=== PATIENT | female | born 1940 | race Caucasian/White ===

== ENCOUNTER 2016-11-30 06:00 | Inpatient (IN) | payer OTHER ==
[~2016-11-30] VITALS: Ht 170.2 cm; Wt 82.0 kg
[2016-11-30] MEDS ORDERED: ONDANSETRON 2MG/ML, 2ML ONE (06:20)
[2016-11-30] MEDS ORDERED: MORPHINE SULFATE 4 MG/ML, 1ML ONE ×2 (06:20→09:34)
[2016-11-30 06:29] LABS: HEMATOCRIT 39.2 % (34.6-47.8); HEMOGLOBIN 12.8 g/dL (11.7-16.4); WHITE BLOOD COUNT 13.6 x10^3/uL (3.4-10)
[2016-11-30] MEDS ORDERED: ONDANSETRON 2MG/ML, 2ML IVPush ONE (06:30)
[2016-11-30] MEDS ORDERED: MORPHINE SULFATE 4 MG/ML, 1ML IVPush ONE ×3 (06:30→09:30)
[2016-11-30] MEDS ORDERED: SODIUM CHLORIDE FLUSH 10ML SYR IVF ONE (06:30)
[2016-11-30] MEDS ORDERED: PLEASE ENTER ALLERGIES MC SCH ×2 (06:30)
[2016-11-30 06:36] LABS: BLOOD UREA NITROGEN 10 mg/dL (7-18)
[2016-11-30] MEDS ORDERED: WARF4TAB7 PO (07:01)
[2016-11-30] MEDS ORDERED: ATOR40TA78 PO (07:01)
[2016-11-30] MEDS ORDERED: LEVO100T5 PO (07:01)
[2016-11-30] MEDS ORDERED: METO50TA82 PO (07:01)
[2016-11-30] MEDS ORDERED: OMEP-110 PO (07:01)
[2016-11-30] MEDS ORDERED: LOSA100T6 PO (07:01)
[2016-11-30] MEDS ORDERED: GABA300C10 PO (07:01)
[2016-11-30] MEDS ORDERED: MAGN400T26 PO (07:01)
[2016-11-30] MEDS ORDERED: OXYB10TA6 PO (07:01)
[2016-11-30] MEDS ORDERED: CALC1CAP8 PO (07:04)
[2016-11-30 09:10] LABS: PATH.CAST-FLAG NOT PRESENT; SPERM-FLAG NOT PRESENT; SRC-FLAG NOT PRESENT; XTAL-FLAG NOT PRESENT; YLC-FLAG NOT PRESENT
[2016-11-30] MEDS ORDERED: LABETALOL 5MG/ML, 20ML IVPush PRN (11:00)
[2016-11-30] MEDS ORDERED: ENALAPRILAT 1.25 MG/ML, 2ML IVPush PRN (11:00)
[2016-11-30] MEDS ORDERED: ONDANSETRON 2MG/ML, 2ML IVPush PRN (11:00)
[2016-11-30] MEDS ORDERED: TEMAZEPAM 15 MG CAPSULE PO PRN (11:00)
[2016-11-30 11:46] LABS: IS PT STATUS REG ER OR PRE ER? YES
[2016-11-30] MEDS ORDERED: CEFTRIAXONE PMX 1GM/50ML 50 ML ONE (11:58)
[2016-11-30] MEDS: CEFTRIAXONE PMX 1GM/50ML 50 ML IV SCH (12:07)
[2016-11-30] MEDS: OXYcodone IR 5MG TABLET PO PRN ×3 (13:20→20:46)
[2016-11-30] MEDS: ENOXAPARIN 80 MG/0.8 ML SQ SCH ×2 (13:20→23:01)
[2016-11-30 15:49] VITALS: BP 115/67
[2016-11-30] MEDS: GABAPENTIN 300 MG CAPSULE PO SCH ×2 (16:58→20:46)
[2016-11-30] MEDS: morphine SULFATE 10 MG/ML, 1ML IVPush PRN (16:58)
[2016-11-30] MEDS ORDERED: WARFARIN 5 MG TABLET PO-COUM ONE (18:00)
[2016-11-30 19:22] VITALS: BP 94/61
[2016-11-30 20:44] VITALS: BP 93/61
[2016-11-30] MEDS: LOSARTAN 50MG TABLET PO SCH (20:45)
[2016-11-30] MEDS: METOPROLOL TARTRATE 50 MG TABLET PO SCH (20:45)
[2016-11-30] MEDS: ATORVASTATIN 40 MG TABLET PO SCH (20:46)
[2016-11-30] MEDS ORDERED: TEMPLATE NON-FORMULARY MED. (Warfarin Sodium** 4 MG) PO SCH (21:00)
[2016-12-01 04:31] LABS: HEMATOCRIT 38.6 % (34.6-47.8); HEMOGLOBIN 12.5 g/dL (11.7-16.4); WHITE BLOOD COUNT 12.9 x10^3/uL (3.4-10)
[2016-12-01 04:41] LABS: ASPARTATE AMINO TRANSFERASE 8 U/L (15-37); BLOOD UREA NITROGEN 11 mg/dL (7-18)
[2016-12-01 04:43] VITALS: BP 106/67
[2016-12-01 04:53] LABS: DIFF TOTAL CELLS COUNTED 100 CELL DIFF
[2016-12-01 04:56] LABS: VERIFY COUNTS? YES
[2016-12-01] MEDS: OXYcodone IR 5MG TABLET PO PRN (05:32)
[2016-12-01] MEDS: LEVOTHYROXINE 100 MCG TABLET PO SCH (05:32)
[2016-12-01] MEDS ORDERED: OMEPRAZOLE 20 MG CAPSULE.DR PO SCH (07:30)
[2016-12-01 08:36] VITALS: BP 119/75
[2016-12-01] MEDS: MAGNESIUM OXIDE 400 MG TABLET PO SCH (08:46)
[2016-12-01] MEDS: METOPROLOL TARTRATE 50 MG TABLET PO SCH ×2 (08:46→20:25)
[2016-12-01] MEDS: GABAPENTIN 300 MG CAPSULE PO SCH ×3 (08:46→20:26)
[2016-12-01] MEDS: METHOCARBAMOL 500 MG TABLET PO SCH ×3 (10:31→20:26)
[2016-12-01] MEDS: CEFTRIAXONE PMX 1GM/50ML 50 ML IV SCH (10:32)
[2016-12-01] MEDS: ENOXAPARIN 80 MG/0.8 ML SQ SCH (13:29)
[2016-12-01] MEDS ORDERED: SODIUM CHLORIDE 0.9% 1,000 ML IV ONE (14:00)
[2016-12-01 14:35] VITALS: BP 106/78
[2016-12-01] MEDS ORDERED: WARFARIN 7.5 MG TABLET PO-COUM ONE (18:00)
[2016-12-01] MEDS: ATORVASTATIN 40 MG TABLET PO SCH (20:25)
[2016-12-01] MEDS: LOSARTAN 50MG TABLET PO SCH (20:26)
[2016-12-01 20:31] VITALS: BP 96/58
[2016-12-01] MEDS: morphine SULFATE 10 MG/ML, 1ML IVPush PRN (22:49)
[2016-12-02] VITALS (9 sets, daily range): BP systolic 68–118; BP diastolic 38–67
[2016-12-02] MEDS: ENOXAPARIN 80 MG/0.8 ML SQ SCH (00:31)
[2016-12-02] MEDS ORDERED: SODIUM CHLORIDE 0.9% 1,000ML IVBOLUS ONE ×3 (01:00→02:30)
[2016-12-02] MEDS ORDERED: GLUCAGON 1 MG IM ONE (02:00)
[2016-12-02] MEDS ORDERED: METHOCARBAMOL 500 MG TABLET PO PRN (02:30)
[2016-12-02] MEDS ORDERED: OXYcodone IR 5MG TABLET PO PRN (03:00)
[2016-12-02] MEDS ORDERED: morphine SULFATE 10 MG/ML, 1ML IVPush PRN (05:00)
[2016-12-02] MEDS: LEVOTHYROXINE 100 MCG TABLET PO SCH (06:41)
[2016-12-02 06:44] LABS: HEMOGLOBIN 10.8 g/dL (11.7-16.4); WHITE BLOOD COUNT 8.8 x10^3/uL (3.4-10)
[2016-12-02 06:56] LABS: BLOOD UREA NITROGEN 14 mg/dL (7-18)
[2016-12-02] MEDS: GABAPENTIN 300 MG CAPSULE PO SCH ×3 (10:08→19:50)
[2016-12-02] MEDS: MAGNESIUM OXIDE 400 MG TABLET PO SCH (10:08)
[2016-12-02] MEDS: CEFTRIAXONE PMX 1GM/50ML 50 ML IV SCH (11:15)
[2016-12-02] MEDS ORDERED: WARFARIN 2 MG TABLET PO-COUM SCH (18:00)
[2016-12-02] MEDS: ATORVASTATIN 40 MG TABLET PO SCH (19:50)
[2016-12-03 01:20] VITALS: BP 116/66
[2016-12-03 05:34] LABS: HEMATOCRIT 33.5 % (34.6-47.8); HEMOGLOBIN 10.9 g/dL (11.7-16.4); WHITE BLOOD COUNT 6.3 x10^3/uL (3.4-10)
[2016-12-03] MEDS: LEVOTHYROXINE 100 MCG TABLET PO SCH (06:38)
[2016-12-03 07:20] VITALS: BP 114/71
[2016-12-03] MEDS: GABAPENTIN 300 MG CAPSULE PO SCH (09:39)
[2016-12-03] MEDS: MAGNESIUM OXIDE 400 MG TABLET PO SCH (09:39)
[2016-12-03] MEDS ORDERED: BISACODYL 10 MG SUPP PR PRN (10:00)
[2016-12-03 12:45] VITALS: BP 136/72
[2016-12-03] MEDS ORDERED: WARFARIN 2 MG TABLET PO-COUM SCH (18:00)
== END 2016-12-03 14:10 | DRG 308 ==
LOC: ED 06:05 → EDIP 09:29 → 5SO 12:21 → 4EST 12-01 17:54 → 5SO 12-02 02:14
PROVIDERS: ADMIT Internal Medicine
PROC: 0T9B70Z Drainage of Bladder with Drainage Device, Via Natural or Artificial Opening (ICD-10-PCS; principal; 2016-11-30)
DX: I48.91 Unspecified atrial fibrillation (principal); E43 Unspecified severe protein-calorie malnutrition; D68.69 Other thrombophilia; G62.9 Polyneuropathy, unspecified; E87.1 Hypo-osmolality and hyponatremia; N39.0 Urinary tract infection, site not specified; I11.9 Hypertensive heart disease without heart failure; I10 Essential (primary) hypertension; W06.XXXA Fall from bed, initial encounter; D64.9 Anemia, unspecified; E78.5 Hyperlipidemia, unspecified; K21.9 Gastro-esophageal reflux disease without esophagitis; Z96.641 Presence of right artificial hip joint; I48.2 Chronic atrial fibrillation; E03.9 Hypothyroidism, unspecified; R62.7 Adult failure to thrive; Z66 Do not resuscitate; Z91.81 History of falling; Z88.2 Allergy status to sulfonamides; Z86.73 Personal history of transient ischemic attack (TIA), and cerebral infarction without residual deficits
CPT/HCPCS: 36415; 71010; 72072; 72110; 72125; 80048; 80053; 80076; 81001; 82040; 82962; 83036; 83735; 84100; 84443; 84484; 85025; 85610; 87040; 87086; 93005; 93306; 96374; 96375; 96376; J0696; J1650; J2405; J1610; J2270; J7030